=== PATIENT | female | born 1990 ===

== ENCOUNTER 2020-11-18 14:12 | Emergency (ER) | payer SELFPAY ==
[2020-11-18 14:21] VITALS: BP 126/86
--- NOTE | 2020-11-18 14:22 | Event Note ---
ED Screening Note ED Screening Note: needs rue lac repair tdap 3 y ago This initial assessment/diagnostic orders/clinical plan/treatment(s) is/are subject to change based on patients health status, clinical progression and re- assessment by fellow clinical providers in the ED. Further treatment and workup at subsequent clinical providers discretion. Patient/guardian urged not to elope from the ED as their condition may be serious if not clinically assessed and managed. Initial orders include: lac repair
--- NOTE | 2020-11-18 17:33 | Emergency Department Report ---
- General Chief Complaint: Laceration/Recheck/Suture Stated Complaint: LT ARM LAC Time Seen by Provider: 11/18/20 14:21 Source: patient Mode of arrival: Ambulatory Limitations: No Limitations - History of Present Illness Initial Comments: Patient is a 30-year-old female presents emergency room complaints of a laceration to the right upper arm that occurred just prior to arrival. Patient states that she was running around outside playing when she accidentally tripped and fell. She states that she caught her arm against a fence and metal bolt. He states initially there was bleeding but has since improved. She denies any numbness or weakness. She is fully able to move the arm. She states her last sinus immunization was 3 years ago. No past medical history. No allergies medications. - Related Data Previous Rx's Medication Instructions Recorded Last Taken Type Naproxen [EC-Naprosyn] 500 mg PO BID PRN #14 tablet. 11/18/20 Unknown Rx cephALEXin [Keflex] 500 mg PO QID 7 Days #28 cap 11/18/20 Unknown Rx ED Review of Systems ROS: Stated complaint: LT ARM LAC Other details as noted in HPI Comment: All other systems reviewed and negative ED Past Medical Hx - Past Medical History Previous Medical History?: No - Surgical History Past Surgical History?: Yes Additional Surgical History: ectopic PG - Medications Home Medications: Home Medications Medication Instructions Recorded Confirmed Last Taken Type Naproxen [EC-Naprosyn] 500 mg PO BID PRN #14 tablet. 11/18/20 Unknown Rx cephALEXin [Keflex] 500 mg PO QID 7 Days #28 cap 11/18/20 Unknown Rx ED Physical Exam - General Limitations: No Limitations General appearance: alert, in no apparent distress - Head Head exam: Present: atraumatic, normocephalic - Eye Eye exam: Present: normal appearance - ENT ENT exam: Present: mucous membranes moist - Respiratory Respiratory exam: Absent: respiratory distress, accessory muscle use - Neurological Exam Neurological exam: Present: alert, oriented X3 - Psychiatric Psychiatric exam: Present: normal affect, normal mood - Skin Skin exam: Present: warm, dry, other (8 cm laceration present to the right posterior/lateral upper arm, no muscle/tendon involvement, no obvious foreign body, no bony ttp, FROM of the RUE, neurovascularly intact, brisk cap refill, no active bleeding) ED Course Vital Signs 11/18/20 14:20 Temperature 97.8 F Pulse Rate 105 H Respiratory 20 Rate Blood Pressure 126/86 [Right] O2 Sat by Pulse 96 Oximetry - Laceration /Wound Repair Right Arm Wound Location: upper extremity (right posterior/lateral upper arm) Wound Length (cm): 8 Wound's Depth, Shape: linear Wound Explored: clean Irrigated w/ Saline (ccs): 100 Betadine Prep?: Yes Anesthesia: 1% Lidocaine Volume Anesthetic (ccs): 10 Wound Debrided: moderate Wound Repaired With: sutures Suture Size/Type: 4:0, proline Number of Sutures: 13 Layer Closure?: No Sterile Dressing Applied?: Yes Progress: Wound irrigated with saline and thoroughly scrubbed with Betadine, 10 cc of 1% lidocaine without epinephrine used as anesthetic, Betadine prep again, sterile drapes applied, sterile gloves worn, 4-0 Prolene used for skin closure, 13 sutures placed, patient tolerated well, no complications, bleeding controlled, patient is neurovascularly intact ED Medical Decision Making - Radiology Data Radiology results: report reviewed Ordering Physician: JANAE CHEEK Date of Service: 11/18/20 Procedure(s): XR humerus 2+V RT Accession Number(s): [id number] cc: JANAE CHEEK Fluoro Time In Minutes: RIGHT HUMERUS 3 VIEWS INDICATION: cut RIGHT arm on fence/bolts. COMPARISON: No relevant prior imaging study available. FINDINGS: The images are mislabeled, I confirmed with the technologist that the right side is the site of interest. There is laceration injury along the lateral mid arm without foreign body or underlying fracture. IMPRESSION: 1. Laceration injury with no retained foreign body or fracture. Signer Name: José Antonio Smith MD Signed: 11/18/2020 6:13 PM Workstation Name: [id number] Transcribed By: DAVID Dictated By: José Antonio Smith MD Electronically Authenticated By: José Antonio Smith MD Signed Date/Time: 11/18/201812 DD/ 11 TD/TT: - Medical Decision Making Patient is a 30-year-old female presents emergency room complaints of a laceration to the right upper arm that occurred just prior to arrival. Patient states that she was running around outside playing when she accidentally tripped and fell. She states that she caught her arm against a fence and metal bolt. He states initially there was bleeding but has since improved. She denies any numbness or weakness. She is fully able to move the arm. She states her last sinus immunization was 3 years ago. No past medical history. No allergies medications. vss. on exam:8 cm laceration present to the right posterior/lateral upper arm, no muscle/tendon involvement, no obvious foreign body, no bony ttp, FROM of the RUE, neurovascularly intact, brisk cap refill, no active bleeding. XR right humerus: 1. Laceration injury with no retained foreign body or fracture. Wound irrigated with saline and thoroughly scrubbed with Betadine and repaired per procedure note. Patient given prescription for naproxen and Keflex. Advised patient Please keep area clean, dry, covered. Please take medication as prescribed. Wash with antibacterial soap and water and pat dry. No hot tub, no pool, no soaking in water. Showering is fine. Follow-up with your primary care doctor for reexamination. Sutures need to be removed in 14 days. Return to emergency room for any new or worsening symptoms. Critical care attestation.: If time is entered above; I have spent that time in minutes in the direct care of this critically ill patient, excluding procedure time. ED Disposition Clinical Impression: Laceration of right upper arm Qualifiers: Encounter type: initial encounter Qualified Code(s): S41.111A - Laceration without foreign body of right upper arm, initial encounter Disposition: DC-01 TO HOME OR SELFCARE Is pt being admited?: No Does the pt Need Aspirin: No Condition: Stable Instructions: Laceration Care, Adult Additional Instructions: Please keep area clean, dry, covered. Please take medication as prescribed. Wash with antibacterial soap and water and pat dry. No hot tub, no pool, no soaking in water. Showering is fine. Follow-up with your primary care doctor for reexamination. Sutures need to be removed in 14 days. Return to emergency room for any new or worsening symptoms. Prescriptions: Naproxen [EC-Naprosyn] 500 mg PO BID PRN #14 tablet.dr AREVALO Reason: pain cephALEXin [Keflex] 500 mg PO QID 7 Days #28 cap Referrals: ZACKARY MEDEL MD [Staff Physician] - 3-5 Days [facility] [Provider Group] - 3-5 Days Time of Disposition: 19:21 Print Language: DIVEHI
--- NOTE | 2020-11-18 18:17 | XRay Report ---
RIGHT HUMERUS 3 VIEWS INDICATION: cut RIGHT arm on fence/bolts. COMPARISON: No relevant prior imaging study available. FINDINGS: The images are mislabeled, I confirmed with the technologist that the right side is the site of inter est. There is laceration injury along the lateral mid arm without foreign body or underlying fracture. IMPRESSION: 1. Laceration injury with no retained foreign body or fracture. Signer Name: José Antonio Smith MD Signed: 11/18/2020 6:13 PM Workstation Name: [id number]
== END 2020-11-18 19:30 | disposition home or self-care (01) ==
LOC: ED 14:12
DX: S41.111A Laceration without foreign body of right upper arm, initial encounter (principal); Z79.899 Other long term (current) drug therapy; X58.XXXA Exposure to other specified factors, initial encounter; Y93.89 Activity, other specified; Y92.89 Other specified places as the place of occurrence of the external cause; Y99.8 Other external cause status
CPT/HCPCS: 99283

== ENCOUNTER 2020-12-01 13:16 | Emergency (ER) | payer SELFPAY ==
[2020-12-01 13:26] VITALS: BP 128/81
== END 2020-12-01 14:19 ==
LOC: ED 13:16
DX: Z00.8 Encounter for other general examination (principal); Z53.21 Procedure and treatment not carried out due to patient leaving prior to being seen by health care provider